=== PATIENT | male | born 1990 | race Caucasian/White ===

== ENCOUNTER → 2016-05-12 | Outpatient (CLI) | payer OTHER ==
[~2016-05-12] MED LIST: NAPROSYN500 MG PO; NORCO 325 MG-51 TAB PO
== END | disposition home or self-care (01) ==
LOC: RESCLI 04:42
DX: J30.9 Allergic rhinitis, unspecified (principal); R03.0 Elevated blood-pressure reading, without diagnosis of hypertension; L30.9 Dermatitis, unspecified

== ENCOUNTER 2016-06-30 12:59 | Emergency (ER) | payer OTHER ==
[~2016-06-30] VITALS: Ht 180.3 cm; Wt 88.5 kg
[2016-06-30 13:05] VITALS: BP 155/97
[2016-06-30] MEDS ORDERED: LEXAPRO10 MG PO (13:05)
[2016-06-30 13:30] LABS: BASO # 0.1 10*3/uL (0.0-0.1); BASO % 0.7 % (0.0-1.0); EOS # 0.1 10*3/uL (0.0-0.4); EOS % 1.1 % (1.0-4.0); HEMATOCRIT 46.3 % (42.0-52.0); HEMOGLOBIN 15.8 g/dl (14.0-18.0); LYMPH # 3.3 10*3/uL (1.3-4.4); LYMPH % 35.9 % (27.0-41.0); MEAN CELL VOLUME 88.4 fl (80.0-94.0); MEAN CORPUSCULAR HGB 30.2 pg (27.0-31.0); MEAN CORPUSCULAR HGB CONC 34.1 g/dl (33.0-37.0); MEAN PLATELET VOLUME 9.9 fl (9.6-12.3); MONO # 0.6 10*3/uL (0.1-1.0); MONO % 6.3 % (3.0-9.0); NEUT # 5.1 10*3/uL (2.3-7.9); NEUT % 55.8 % (47.0-73.0); PLATELET COUNT AUTOMATED 261 10*3/uL (130-400); RED BLOOD COUNT 5.24 10*6/uL (4.50-5.90); RED CELL DISTRI WIDTH 12.2 % (0-14.5); WHITE BLOOD COUNT 9.1 10*3/uL (4.8-10.8)
[2016-06-30 13:39] LABS: PROTHROMBIN TIME 10.9 SECONDS (9.0-12.4)
[2016-06-30 13:47] LABS: ALBUMIN 4.2 gm/dl (3.1-4.5); ALKALINE PHOSPHATASE 77 U/L (45-117); BILIRUBIN, TOTAL 0.4 mg/dl (0.2-1.0); BUN 14 mg/dl (7-24); CARBON DIOXIDE 23 mmol/L (21-32); CHLORIDE 106 mmol/L (98-107); CPK 139 U/L (39-308); EST GLOM FILT AFRICAN AMERICAN > 60 ml/min; GLUCOSE 99 mg/dL (65-99); MAGNESIUM 2.1 mg/dL (1.5-2.1); SGOT/AST 35 IU/L (3-35); SGPT/ALT 59 U/L (12-78); SODIUM 140 mmol/L (136-145); TOTAL PROTEIN 7.9 gm/dL (6.4-8.2)
[2016-06-30 13:48] LABS: C-REACTIVE PROTEIN < 0.29 MG/DL (0-0.3); CKMB < 0.5 ng/ml (0.5-3.6); TROPONIN I < 0.015 ng/ml (<0.045)
[2016-06-30 14:45] LABS: FOLIC ACID 12.29 ng/mL (>5.38)
== END 2016-06-30 14:50 | disposition home or self-care (01) ==
LOC: ED 12:59
PROVIDERS: Emergency Medicine
DX: R55 Syncope and collapse (principal); Z88.8 Allergy status to other drugs, medicaments and biological substances

== ENCOUNTER → 2019-12-16 | Outpatient (CLI) | payer SELFPAY ==
[~2019-12-16] MED LIST changes: +LEXAPRO10 MG PO
== END | disposition home or self-care (01) ==
LOC: COVID19 13:30
PROVIDERS: ATTEND Emergency Medicine
DX: Z20.828 Contact with and (suspected) exposure to other viral communicable diseases (principal)

== ENCOUNTER → 2020-03-27 | Outpatient (CLI) | payer OTHER ==
[2020-03-27 08:29] LABS: BASO % 0.7 % (0.0-1.0); EOS # 0.1 10*3/uL (0.0-0.4); HEMATOCRIT 46.3 % (42.0-52.0); LYMPH # 2.2 10*3/uL (1.3-4.4); LYMPH % 41.4 % (27.0-41.0); MEAN CELL VOLUME 90.4 fl (80.0-94.0); MEAN CORPUSCULAR HGB 29.9 pg (27.0-31.0); MONO # 0.5 10*3/uL (0.1-1.0); MONO % 9.1 % (3.0-9.0); NEUT # 2.5 10*3/uL (2.3-7.9); NEUT % 46.6 % (47.0-73.0); PLATELET COUNT AUTOMATED 286 10*3/uL (130-400); RED BLOOD COUNT 5.12 10*6/uL (4.50-5.90); RED CELL DISTRI WIDTH 11.8 % (0-14.5); WHITE BLOOD COUNT 5.4 10*3/uL (4.8-10.8)
[2020-03-27 09:08] LABS: BUN 22 mg/dl (7-24); CHLORIDE 109 mmol/L (98-107); POTASSIUM 4.1 mmol/L (3.5-5.1); SODIUM 142 mmol/L (136-145)
[2020-03-27 09:14] LABS: ALKALINE PHOSPHATASE 83 U/L (45-117); CREATININE 1.23 mg/dL (0.70-1.30); FREE T4 0.91 ng/dl (0.76-1.46); SGOT/AST 20 IU/L (3-35); SGPT/ALT 53 U/L (12-78); TOTAL PROTEIN 7.8 gm/dL (6.4-8.2)
[2020-03-28 08:08] LABS: RHEUMATOID ARTHRITIS FACTOR 14.3 IU/mL (0.0-13.9)
== END | disposition home or self-care (01) ==
LOC: LAB 08:00
PROVIDERS: ATTEND Internal Medicine
DX: M25.50 Pain in unspecified joint (principal)

== ENCOUNTER → 2020-04-26 | Outpatient (CLI) | payer OTHER | END | disposition home or self-care (01) | LOC: LAB 13:34 | PROVIDERS: ATTEND Internal Medicine | DX: R76.8 Other specified abnormal immunological findings in serum (principal) ==

== ENCOUNTER 2021-08-18 09:56 | Emergency (ER) | payer BC ==
[~2021-08-18] VITALS: Wt 99.8 kg
[2021-08-18] MEDS ORDERED: COZAAR25 M1 PO (10:21)
[2021-08-18 10:52] LABS: BASO % 0.7 % (0.0-1.0); EOS % 0.5 % (1.0-4.0); HEMATOCRIT 43.8 % (42.0-52.0); LYMPH # 1.3 10*3/uL (1.3-4.4); LYMPH % 23.2 % (27.0-41.0); MEAN CELL VOLUME 89.9 fl (80.0-94.0); MEAN CORPUSCULAR HGB 30.2 pg (27.0-31.0); MEAN CORPUSCULAR HGB CONC 33.6 g/dl (33.0-37.0); MEAN PLATELET VOLUME 9.8 fl (9.6-12.3); MONO # 0.4 10*3/uL (0.1-1.0); MONO % 7.1 % (3.0-9.0); NEUT # 3.9 10*3/uL (2.3-7.9); NEUT % 68.2 % (47.0-73.0); PLATELET COUNT AUTOMATED 291 10*3/uL (130-400); RED BLOOD COUNT 4.87 10*6/uL (4.50-5.90); RED CELL DISTRI WIDTH 11.9 % (0-14.5); WHITE BLOOD COUNT 5.8 10*3/uL (4.8-10.8)
[2021-08-18 11:08] LABS: ALKALINE PHOSPHATASE 81 U/L (45-117); BUN 9 mg/dl (7-24); CHLORIDE 110 mmol/L (98-107); CREATININE 1.11 mg/dL (0.70-1.30); LIPASE 111 U/L (73-393); POTASSIUM 3.8 mmol/L (3.5-5.1); SGOT/AST 48 IU/L (3-35); SGPT/ALT 63 U/L (12-78); SODIUM 141 mmol/L (136-145); TOTAL PROTEIN 7.3 gm/dL (6.4-8.2)
[2021-08-18 15:04] VITALS: BP 130/89
[2021-08-18] MEDS ORDERED: METHOCARBAMOL750 M1 PO (15:04)
== END 2021-08-18 16:28 | disposition home or self-care (01) ==
LOC: ED 09:56
PROVIDERS: Emergency Medicine
DX: E86.0 Dehydration (principal); R07.89 Other chest pain; Z88.8 Allergy status to other drugs, medicaments and biological substances; Z79.899 Other long term (current) drug therapy

== ENCOUNTER 2022-08-25 13:12 | Emergency (ER) | payer OTHER ==
[~2022-08-25 13:12] MED LIST changes: +COZAAR25 M1 PO; +METHOCARBAMOL750 M1 PO
[2022-08-25 13:19] VITALS: BP 141/92
[2022-08-25] MEDS ORDERED: CIPRO500 MG PO (13:35)
== END 2022-08-25 13:23 | disposition home or self-care (01) ==
LOC: ED 13:12
DX: S91.339A Puncture wound without foreign body, unspecified foot, initial encounter (principal); Z88.8 Allergy status to other drugs, medicaments and biological substances; W22.8XXA Striking against or struck by other objects, initial encounter; Y93.89 Activity, other specified; Y92.89 Other specified places as the place of occurrence of the external cause; Y99.8 Other external cause status